=== PATIENT | male | born 1980 | race Caucasian/White ===

== ENCOUNTER 2017-05-02 08:36 | Emergency (ER) | payer SELFPAY ==
--- NOTE | 2017-05-02 09:21 | UC ---
Skin Complaint HPI - HPI Summary HPI Summary: 36 yo BM c/o right lower chest wall rash on right side only x 4 days. 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 Not painful but feels mildly nauseous. - History of Current Complaint Chief Complaint: UCAbdominalPain Time Seen by Provider: 05/02/17 08:43 Stated Complaint: RASH Hx Obtained From: Patient Onset/Duration: Sudden Onset Skin Exposure Onset/Duration: Days Ago Timing: Constant Onset Severity: Moderate Current Severity: Moderate Location: Discrete, Other - rihgt lower chest - Allergy/Home Medications Allergies/Adverse Reactions: Allergies Allergy/AdvReac Type Severity Reaction Status Date / Time No Known Allergies Allergy Verified 05/02/17 08:45 Review of Systems Constitutional: Negative Skin: Rash, Other - SEE HPI Eyes: Negative ENT: Negative Respiratory: Negative Cardiovascular: Negative Gastrointestinal: Negative Genitourinary: Negative Motor: Negative Neurovascular: Negative Musculoskeletal: Negative Neurological: Negative Psychological: Negative All Other Systems Reviewed And Are Negative: Yes PMH/Surg Hx/FS Hx/Imm Hx Previously Healthy: Yes - h/o shingles on left face - Surgical History Surgical History: None - Social History Alcohol Use: Occasionally Substance Use Type: None Smoking Status (MU): Current Some Day Smoker Amount Used/How Often: 1 time weekly Household Exposure Type: Cigarettes - Immunization History Most Recent Influenza Vaccination: Not UTD Physical Exam Triage Information Reviewed: Yes Vital Signs: Initial Vital Signs Temp 37.6 C 05/02/17 08:37 Pulse 80 05/02/17 08:37 Resp 16 05/02/17 08:37 BP 127/90 05/02/17 08:37 Pulse Ox 98 05/02/17 08:37 Vital Signs Reviewed: Yes Eye Exam: Normal ENT Exam: Normal Dental Exam: Normal Neck exam: Normal Neck: Positive: 1 Respiratory Exam: Normal Cardiovascular Exam: Normal Abdominal Exam: Normal Musculoskeletal Exam: Normal Neurological Exam: Normal Psychological Exam: Normal Skin: Positive: rashes, significant lesion(s) - herpes zoster vesicular lesions on right T6-8 dermatomal distribution, does not cross midline, nontender , mild tingling Course/Dx - Course Course Of Treatment: Herpes zoster recurrence, though it is 4 days out, will tx for recurrence with acyclovir as it may mitigate sequelae - Diagnoses Provider Diagnoses: herpes zoster Discharge - Discharge Plan Condition: Stable Disposition: HOME Prescriptions: Acyclovir* [Zovirax 400 MG TAB*] 400 mg PO TID 5 Days #15 tab Patient Education Materials: Agustina (ED) Referrals: No Primary Care Phys,NOPCP [Primary Care Provider] - Additional Instructions: as tolerated
--- NOTE | 2017-05-03 14:58 | UC ---
Progress - Progress Note Progress Note: Pt with self referred HIV test HIV 1 positive per hospital policy and confirmation with Theresa Moy - Dr. Osullivan will receive + result and pt will be contacted through his office no further action required from Pt name and med rec given to Ms Moy by ALIRIO Chiang 05/03/17 14:58
== END 2017-05-02 09:21 | disposition home or self-care (01) ==
LOC: UCEAST 08:36
DX: B02.9 Zoster without complications (principal); Z72.0 Tobacco use
CPT/HCPCS: 36415; 86701; 86702; 86703; 99202; G0463